=== PATIENT | male | born 1930 | race Caucasian/White ===

== ENCOUNTER → 2016-08-26 | Day surgery (SDC) | payer OTHER, MEDICARE ==
[~2016-08-26] MED LIST: LR 1,000 ML IV ONE; NALOXONE HCL 0.4 MG/ML INJ IVP PRN; PROPOFOL 200 MG/20 ML VIAL ONE
[2016-08-26 08:33] VITALS: PULSE 62
--- NOTE | 2016-08-26 09:04 | PDANEPAE ---
ANE History of Present Illness regular follow up ANE Past Medical History - Cardiovascular History Hx Hypertension: Yes - Pulmonary History Hx Oxygen in Use at Home: No - Endocrine History Hx Diabetes: No Hypothyroid: Yes - Neurological & Psychiatric Hx Hx Neurological and Psychiatric Disorders: Yes - GI History Hx Gastrointestinal Disorders: Yes ANE Review of Systems - Exercise capacity Exercise capacity: >=4 METS - Systems Gastrointestinal: Reports: other (GERD) ANE Patient History - Allergies Allergies/Adverse Reactions: No Known Allergies Allergy (Unverified 12/20/11 06:19) - Home Medications Home Medications: Aspirin [Aspirin 81mg (*)] 81 mg PO DAILY 12/20/11 [Last Taken 12/19/11] Docusate Sodium [Colace 100 MG (*)] 100 mg PO BID 12/20/11 [Last Taken 12/19/11] Levothyroxine [Synthroid 25 mcg (*)] 25 mcg PO DAILY06 12/20/11 [Last Taken ] Lisinopril/Hctz 10/12.5 mg [Zestoretic/Prinzide 10/12.5MG (*)] 1 tab PO DAILY [Last Taken 08/26/16] Lisinopril/Hydrochlorothiazide [Lisinopril-Hctz 10-12.5 mg Tab] 0.5 tab PO HS [Last Taken 08/26/16] [place]-3 Fatty Acids [Fish Oil 1000 mg (*)] 1,000 mg PO DAILY 12/20/11 [Last Taken 12/19/11] Simvastatin [Zocor 20 mg] 20 mg PO DAILY18 12/20/11 [Last Taken 12/19/11] Vitamin E [Vitamin E 200 units] 400 unit PO DAILY 12/20/11 [Last Taken 12/19/11] Nexium 08/26/16 [Last Taken 08/26/16] - NPO status NPO Since - Liquids (Date): 08/26/16 NPO Since - Liquids (Time): 05:00 NPO Since - Solids (Date): 08/25/16 NPO Since - Solids (Time): 12:00 - Smoking Hx Smoking Status: Never smoked - Alcohol Use Alcohol Use: Occasionally (1 drink per week) ANE Labs/Vital Signs - Vital Signs Blood Pressure: 136/74 Heart Rate: 62 Respiratory Rate: 16 O2 Sat (%): 94 Height: 172.72 cm Weight: 81.647 kg ANE Physical Exam - Airway Neck exam: FROM Mallampati Score: Class 2 Mouth exam: dentures - Pulmonary Pulmonary: clear to auscultation - ASA Status ASA Status: III ANE Anesthesia Plan Anesthesia Plan: GA with mask
--- NOTE | 2016-08-26 09:31 | POSTOPPROG ---
Post Op Note Date of Operation: 08/26/16 Surgeon: Brice Cervantes Pre-op Diagnosis: constipation Post-op Diagnosis: constipation Indication: constipation Procedure: Colonoscopy Findings: normal colonoscopy. no findings to explain constipation Inf/Abcess present in the surg proc area at time of surgery?: No
--- NOTE | 2016-08-26 09:36 | POSTANESTH ---
Post Anesthetic Evaluation Cardiovascular Status: Similar to Pre-Op Cond Respiratory Status: Normal, Stable Level of Consciousness/Mental Status: Can Participate in Eval Pain Control: Adequate, Prn Tx Ordered Nausea/Vomiting Control: Adequate, Prn Tx Ordered Complications Possibly Related to Anesthesia: None Noted
[2016-08-26 10:24] VITALS: RESP 15
[2016-08-26 10:28] VITALS: BP 145/68
[2016-08-26 10:29] VITALS: TEMP 97.5; O2SAT 96
--- NOTE | 2016-08-26 15:41 | GPN ---
[f rep st] PROCEDURE NOTE DATE OF PROCEDURE: 08/26/2016 PREPROCEDURE DIAGNOSIS: Constipation. POSTPROCEDURE DIAGNOSIS: Constipation. PROCEDURE: Colonoscopy. MEDICATIONS: Monitored anesthesia care. INDICATIONS: The patient is an 86-year-old male with a history of worsening constipation who is her e for a colonoscopy. The risks and the benefits of the procedure were discussed with the patient. Consent obtained. Risks include, but not limited to, bleeding, perforation. SEDATION: The patient is ASA class 2. DESCRIPTION OF PROCEDURE: The adult colonoscope was advanced into the terminal ileum, which appeare d normal. The ileocecal valve, appendiceal orifice, cecum, ascending colon, hepatic flexure, transv erse colon, splenic flexure, descending colon, sigmoid colon appear normal. Retroflexed views in th e rectum appeared normal. IMPRESSION: Normal colonoscopy. No findings to explain constipation. RECOMMENDATIONS: 1. Advance diet as tolerated. 2. Continue the addition of Benefiber 2 scoops orally daily for constipation. 3. He can use MiraLAX 17 g orally daily as needed for refractory constipation. 4. Follow up in my clinic as previously scheduled. Thank you for allowing me to participate in the care of your patient. Please do not hesitate to belen portillo with questions. /[id number]/MODL
== END | disposition home or self-care (01) ==
LOC: FSGY 07:31
PROVIDERS: ATTEND Internal Medicine Gastroenterology
PROC: 0DJD8ZZ Inspection of Lower Intestinal Tract, Via Natural or Artificial Opening Endoscopic (ICD-10-PCS; principal; 2016-08-26 09:00)
DX: K59.00 Constipation, unspecified (principal); K21.9 Gastro-esophageal reflux disease without esophagitis
CPT/HCPCS: J2704

== ENCOUNTER → 2016-11-12 | Outpatient (CLI) | payer OTHER, MEDICARE | LOC: BHFA 15:30 | PROVIDERS: ATTEND Internal Medicine Cardiovascular Disease | DX: H35.82 Retinal ischemia (principal) ==